=== PATIENT | female | born 1970 | race Caucasian/White ===

== ENCOUNTER 2016-10-19 08:43 | Emergency (ER) | payer OTHER ==
[2016-10-19] VITALS (8 sets, daily range): BP systolic 133–195; BP diastolic 61–96; PULSE 65–89; RESP 18; TEMP 98.1–98.2; O2SAT 96–99
[~2016-10-19 08:43] MED LIST: AMLO2.5T PO; CIPR-9 PO; LEVO25TA36 PO; ZITH250T PO; ZOCO40TA PO; ZOFR8TAB4 SL
[2016-10-19] MEDS ORDERED: niCARdipine INJ 25 MG in SODIUM CHLOR 0.9% 250 ML INJ 250 ML IV SCH (09:15)
[2016-10-19] MEDS ORDERED: SODIUM CHLORIDE 0.9% FLUSH 10 ML FLUSH IVF PRN (09:15)
[2016-10-19 09:22] LABS: AUTOMATED NEUTROPHIL # 6.4 TH/MM3 (1.8-7.7); BASOPHIL # 0.1 TH/MM3 (0-0.2); BASOPHIL % 0.9 % (0.0-2.0); EOSINOPHIL % 9.3 % (0.0-4.0); HEMATOCRIT 44.7 % (35.0-46.0); HEMO FLAGS DIFF FINAL; LYMPH % 24.1 % (9.0-44.0); LYMPHOCYTE # 2.6 TH/MM3 (1.0-4.8); MEAN CELL VOLUME 90.1 FL (80.0-100.0); MEAN CORPUSCULAR HEMOGLOBIN 31.7 PG (27.0-34.0); MEAN CORPUSCULAR HGB CONC 35.2 % (32.0-36.0); MONO % 6.5 % (0.0-8.0); NEUT % 59.2 % (16.0-70.0); PLATELET COUNT 266 TH/MM3 (150-450); RED BLOOD COUNT 4.96 MIL/MM3 (4.00-5.30); RED CELL DISTRIBUTION WIDTH 13.2 % (11.6-17.2); WHITE BLOOD COUNT 10.8 TH/MM3 (4.0-11.0)
--- NOTE | 2016-10-19 09:32 | RADRPT ---
EXAM DATE/TIME: 10/19/2016 09:19 [facility] COMPARISON: No previous studies available for comparison. INDICATIONS : Right upper extremity weakness for one week. RADIATION DOSE: 36.62 CTDIvol (mGy) MEDICAL HISTORY : None SURGICAL HISTORY : None. ENCOUNTER: Initial ACUITY: 1 week PAIN SCALE: 0/10 LOCATION: cranial TECHNIQUE: Multiple contiguous axial images were obtained of the head. Using automated exposure control and adj ustment of the mA and/or kV according to patient size, radiation dose was kept as low as reasonably a chievable to obtain optimal diagnostic quality images. FINDINGS: CEREBRUM: The ventricles are normal for age. No evidence of midline shift, mass lesion, hemorrhage or acute in farction. No extra-axial fluid collections are seen. POSTERIOR FOSSA: The cerebellum and brainstem are intact. The 4th ventricle is midline. The cerebellopontine angle i s unremarkable. EXTRACRANIAL: The visualized portion of the orbits is intact. SKULL: The calvaria is intact. No evidence of skull fracture. CONCLUSION: Normal examination. Merrick Montenegro MD on October 19, 2016 at 9:30 Board Certified Radiologist. This report was verified electronically.
[2016-10-19 09:47] LABS: BICARBONATE 24.6 MEQ/L (21.0-32.0)
[2016-10-19 10:13] LABS: AMPHETAMINE, URINE NEG (NEG); BARBITURATES, URINE NEG (NEG); COCAINE, URINE NEG (NEG)
--- NOTE | 2016-10-19 11:11 | PD ---
HPI Chief Complaint: Hypertension Time Seen by Provider: 09:09 Travel History International Travel<30 days: No Contact w/Intl Traveler<30days: No History of Present Illness HPI 46-year-old female arrives to the ER with paresthesias 1 week in the right upper and lower extremities. She also has weakness in the right upper and lower extremities. She is not sure when the weakness started. She has no headache. She has never experienced weakness in the extremities before. She has not the typically during periods of hypertension she develops nausea and sense of generalized weakness and dizziness. She notes that her blood pressure is high today. She did her prior to coming to the ER was 175/75. She is compliant with amlodipine 2.5 mg nightly. He has no other complaint. PFSH Past Medical History Arthritis: Yes Anxiety: Yes Depression: Yes Cancer: No Cardiovascular Problems: No High Cholesterol: Yes COPD: Yes Dementia: Yes Diabetes: No Diminished Hearing: No Glaucoma: No Genitourinary: Yes (BLADDER SPASMS) Hepatitis: No Hiatal Hernia: No Hypertension: No Musculoskeletal: Yes (FIBROMYALGIA) Psychiatric: Yes (panic attacks) Reproductive: Yes (HERPES) Respiratory: No Thyroid Disease: Yes PNEUMOCCOCAL Vaccine (Year): 2 ?: Not : 4 Para: 1 Miscarriage: 3 Past Surgical History Abdominal Surgery: Yes (appendectomy) Appendectomy: Yes Section: Yes Gynecologic Surgery: Yes () Pacemaker: No Other Surgery: Yes Social History Alcohol Use: No Tobacco Use: No (QUIT 2 YEARS AGO) Substance Use: No Allergies-Medications (Allergen,Severity, Reaction): Coded Allergies: Codeine (Verified Allergy, Intermediate, 01/10/16) Reported Meds & Prescriptions Reported Meds & Active Scripts Active Zofran Odt (Ondansetron Odt) 8 Mg Tab 8 Mg SL Q8H PRN Cipro (Ciprofloxacin HCl) 500 Mg Tab 500 Mg PO BID Zithromax Z-Bautista (Azithromycin) 250 Mg Tab 250 Mg PO DIRECTED 500 MG (2 TABLETS) PO ON DAY 1, THEN 250 MG (1 TABLET) PO ON DAYS 2 TO 5. Reported Amlodipine Besylate 2.5 mg (Amlodipine Besylate) 2.5 Mg Tab 1 Tab PO DAILY 30 Days Levoxyl (Levothyroxine Sodium) 25 Mcg Tab 50 Mcg PO DAILY Zocor 40 mg (Simvastatin) 40 Mg Tab 40 Mg PO HS Review of Systems Except as stated in HPI: all other systems reviewed are Neg General / Constitutional: No: Fever Neurologic: Positive: Weakness, Paresthesia, No: Ataxia, Headache, Slurred Speech Psychiatric: Positive: Anxiety Physical Exam Narrative GENERAL: 46-year-old female pleasant well-nourished well-developed SKIN: Focused skin assessment warm/dry. HEAD: Atraumatic. Normocephalic. EYES: Pupils equal and round. No scleral icterus. No injection or drainage. ENT: No nasal bleeding or discharge. Mucous membranes pink and moist. NECK: Trachea midline. No JVD. CARDIOVASCULAR: Regular rate and rhythm. No murmur appreciated. RESPIRATORY: No accessory muscle use. Clear to auscultation. Breath sounds equal bilaterally. GASTROINTESTINAL: Abdomen soft, non-tender, nondistended. Hepatic and splenic margins not palpable. MUSCULOSKELETAL: No obvious deformities. No clubbing. No cyanosis. No edema. NEUROLOGICAL: Cranial nerves III through XII are intact. The right upper and lower extremity exam reveals mild weakness compared to the left side. 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 Ankle plantar flexion is slightly weaker on the right side. Speech memory mentation normal. PSYCHIATRIC: Appropriate mood and affect; insight and judgment normal. Data Data Last Documented VS Vital Signs Date Time Temp Pulse Resp B/P Pulse Ox O2 Delivery O2 Flow Rate FiO2 10/19/16 13:11 98.2 77 18 166/90 98 10/19/16 12:44 Room Air VS received Orders Electrocardiogram (10/19/16 09:09) Complete Blood Count With Diff (10/19/16 09:09) Basic Metabolic Panel (Bmp) (10/19/16 09:09) Drug Screen, Random Urine (10/19/16 09:09) Ct Brain W/O Iv Contrast(Rout) (10/19/16 09:09) Ecg Monitoring (10/19/16 09:09) Iv Access Insert/Monitor (10/19/16 09:09) Oximetry (10/19/16 09:09) Blood Glucose (10/19/16 09:09) Sodium Chloride 0.9% Flush (Ns Flush) (10/19/16 09:15) Nicardipine Inj (Cardene Inj) (10/19/16 09:15) Mri Brain W/O Contrast (10/19/16 10:27) Mra Brain W/O Contrast (Cow) (10/19/16 10:27) Mra Carotids W Contrast (10/19/16 10:27) Lorazepam Inj (Ativan Inj) (10/19/16 12:00) Lorazepam Inj (Ativan Inj) (10/19/16 11:46) Gadodiamide Pf Inj (Omniscan Pf Inj) (10/19/16 12:19) Labs Laboratory Tests Test 10/19/16 10/19/16 09:10 10:00 White Blood Count 10.8 TH/MM3 Red Blood Count 4.96 MIL/MM3 Hemoglobin 15.7 GM/DL Hematocrit 44.7 % Mean Corpuscular Volume 90.1 FL Mean Corpuscular Hemoglobin 31.7 PG Mean Corpuscular Hemoglobin 35.2 % Concent Red Cell Distribution Width 13.2 % Platelet Count 266 TH/MM3 Mean Platelet Volume 8.0 FL Neutrophils (%) (Auto) 59.2 % Lymphocytes (%) (Auto) 24.1 % Monocytes (%) (Auto) 6.5 % Eosinophils (%) (Auto) 9.3 % Basophils (%) (Auto) 0.9 % Neutrophils # (Auto) 6.4 TH/MM3 Lymphocytes # (Auto) 2.6 TH/MM3 Monocytes # (Auto) 0.7 TH/MM3 Eosinophils # (Auto) 1.0 TH/MM3 Basophils # (Auto) 0.1 TH/MM3 CBC Comment DIFF FINAL Differential Comment Sodium Level 137 MEQ/L Potassium Level 4.0 MEQ/L Chloride Level 103 MEQ/L Carbon Dioxide Level 24.6 MEQ/L Anion Gap 9 MEQ/L Blood Urea Nitrogen 13 MG/DL Creatinine 0.72 MG/DL Estimat Glomerular Filtration 86 ML/MIN Rate Random Glucose 123 MG/DL Calcium Level 9.3 MG/DL Urine Opiates Screen NEG Urine Barbiturates Screen NEG Urine Amphetamines Screen NEG Urine Benzodiazepines Screen NEG Urine Cocaine Screen NEG Urine Cannabinoids Screen NEG MDM Medical Decision Making Medical Screen Exam Complete: Yes Emergency Medical Condition: Yes Differential Diagnosis Stroke, TIA, hypertensive encephalopathy, arrhythmia, anemia, anxiety, cause paralysis, seizure, brain tumor Narrative Course CBC & BMP Diagram 10/19/16 09:10 Drug screen is negative The EKG reveals a sinus rhythm normal axis and intervals no ischemic injury change Last 24 hours Impressions Neck Magnetic Resonance Angiography 10/19/16 1027 Signed Impressions: Service Date/Time: Wednesday, October 19, 2016 11:39 - CONCLUSION: Normal examination. Merrick Montenegro MD Head Magnetic Resonance Angiography 10/19/16 1027 Signed Impressions: Service Date/Time: Wednesday, October 19, 2016 11:39 - CONCLUSION: Normal examination. Merrick Montenegro MD Brain MRI 10/19/16 1027 Signed Impressions: Service Date/Time: Wednesday, October 19, 2016 11:39 - CONCLUSION: Normal examination. Merrick Montenegro MD Head CT 10/19/16 0909 Signed Impressions: Service Date/Time: Wednesday, October 19, 2016 09:19 - CONCLUSION: Normal examination. Merrick Montenegro MD There is quite mild weakness in the right upper and lower extremities. Her workup thus far is unremarkable. The case was discussed with Dr. Ruff and he 'll see the patient tomorrow. We offered the patient admission for further diagnostic evaluation however she was adamantly opposed to this idea. She does agree to see Dr. Ruff tomorrow. Diagnosis Primary Impression: RUE weakness Additional Impression: Weakness of right lower extremity Referrals: Mt Ruff DO 1 day Additional Instructions: You have a choice when it comes to health care, and we are glad that you chose [facility]. Hopefully, we have met your expectations on today's visit. You are welcome to return to [facility] at any time, as we are committed to meeting the health care needs of our community. Med/Other Pt SpecificInfo: No Change to Meds Disposition: 01 DISCHARGE HOME Condition: Stable Haroldo Pan MD Oct 19, 2016 11:10
[2016-10-19] MEDS ORDERED: LORazepam 2 MG/ML VIAL ONE (11:46)
[2016-10-19] MEDS ORDERED: LORazepam 2 MG/ML VIAL IV PUSH ONE (12:00)
[2016-10-19] MEDS ORDERED: GADODIAMIDE PF 287 MG/ML 20 ML VIAL (for RAD MRI) IV ONE (12:19)
--- NOTE | 2016-10-19 12:26 | RADRPT ---
EXAM DATE/TIME: 10/19/2016 11:39 [facility] COMPARISON: CT BRAIN W/O CONTRAST, October 19, 2016, 9:19. INDICATIONS : Right sided tingling. MEDICAL HISTORY : Hypertension. SURGICAL HISTORY : Appendectomy. section. ENCOUNTER: Initial ACUITY: 1 day PAIN SCORE: 0/10 LOCATION: head TECHNIQUE: Multiplanar, multisequence MRI of the brain was performed without contrast. FINDINGS: There is no evidence for acute infarction on diffusion weighted images. No hemorrhage is seen. No mas ses are identified. Signal intensity of the brain is normal. CONCLUSION: Normal examination. Merrick Montenegro MD on October 19, 2016 at 12:24 Board Certified Radiologist. This report was verified electronically.
--- NOTE | 2016-10-19 12:27 | RADRPT ---
EXAM DATE/TIME: 10/19/2016 11:39 [facility] COMPARISON: MRI BRAIN W/O CONTRAST, October 19, 2016, 11:39. CT BRAIN W/O CONTRAST, October 19, 2016, 9:19. INDICATIONS : Right sided tingling. MEDICAL HISTORY : Hypertension. SURGICAL HISTORY : Appendectomy. section. ENCOUNTER: Initial ACUITY: 1 day PAIN SCORE: 0/10 LOCATION: head Please note a normal MRA of the brain does not entirely exclude the possibility of a small aneurysm, nor the possibility of distal intracranial vessel disease. TECHNIQUE: 3D time of flight MRA was performed. Source images, multiplanar STS MIP, and 3D volume MIP reconstru ctions were reviewed. FINDINGS: There is excellent visualization of the major intracranial arteries out to the second-order branch ve ssels. There is no evidence for aneurysm, vessel truncation or stenosis, and no evidence for vascula r malformation. A one division of the right anterior cerebral artery is hypoplastic compared to the l eft. CONCLUSION: Normal examination. Merrick Montenegro MD on October 19, 2016 at 12:25 Board Certified Radiologist. This report was verified electronically.
--- NOTE | 2016-10-19 12:51 | RADRPT ---
EXAM DATE/TIME: 10/19/2016 11:39 [facility] COMPARISON: MRI BRAIN W/O CONTRAST, October 19, 2016, 11:39. MRA BRAIN W/O CONTRAST, October 19, 2016, 11:39. INDICATIONS : Right sided tingling. CONTRAST: 20 cc Omniscan (gadodiamide) IV MEDICAL HISTORY : Hypertension. SURGICAL HISTORY : Appendectomy. section. ENCOUNTER: Initial ACUITY: 1 day PAIN SCORE: 0/10 LOCATION: neck Percent stenosis is calculated using the diameter of the stenotic region over the diameter of the nor mal distal internal carotid artery. TECHNIQUE: Bolus infused MRA of the extracranial circulation was performed using a neurovascular coil. Post pro cessing was performed including rotating subvolume maximum intensity projections of each carotid austen ry, rotating full volume maximum intensity projections of both carotid arteries, sagittal and coronal sliding thin slab reformations of each carotid artery, and left oblique sliding thin slab reformatio n through the aortic arch to include the origin of the arch branch vessels. FINDINGS: AORTIC ARCH: There is a three vessel origin of the great vessels from the aorta. No evidence of ostial narrowing. RIGHT CAROTID: The common carotid artery is intact. The carotid bulb has a normal configuration without ulceration or narrowing. The internal carotid artery lumen is smooth without stenosis. The external carotid ar kennedi is intact. LEFT CAROTID: The common carotid artery is intact. The carotid bulb has a normal configuration without ulceration or narrowing. The internal carotid artery lumen is smooth without stenosis. The external carotid ar kennedi is intact. VERTEBRALS: The vertebral arteries have a symmetric diameter. No stenotic lesions are seen. CONCLUSION: Normal examination. Merrick Montenegro MD on October 19, 2016 at 12:49 Board Certified Radiologist. This report was verified electronically.
--- NOTE | 2016-10-20 11:54 | EKG ---
Date Performed: 10/19/2016 Time Performed: 09:43:34 PTAGE: 46 years EKG: Sinus rhythm NORMAL ECG NO PREVIOUS TRACING DOCTOR: Himanshu Bennett Interpretating Date/Time 10/20/2016 11:47:14
== END 2016-10-19 13:46 | disposition home or self-care (01) ==
LOC: NEPE 08:43
DX: R53.1 Weakness (principal); E78.00 Pure hypercholesterolemia, unspecified; J44.9 Chronic obstructive pulmonary disease, unspecified; M79.7 Fibromyalgia; E07.9 Disorder of thyroid, unspecified; Z87.891 Personal history of nicotine dependence
CPT/HCPCS: 70450; 70544; 70548; 70551; 80048; 80307; 85025; 93005; 96374; 96375; 99285; A9579; J2060; J7050

== ENCOUNTER → 2016-10-22 | Outpatient (CLI) | payer OTHER ==
[2016-10-22 08:26] LABS: AUTOMATED NEUTROPHIL # 7.2 TH/MM3 (1.8-7.7); BASOPHIL # 0.1 TH/MM3 (0-0.2); BASOPHIL % 0.9 % (0.0-2.0); EOSINOPHIL # 0.9 TH/MM3 (0-0.4); EOSINOPHIL % 8.1 % (0.0-4.0); HEMATOCRIT 43.1 % (35.0-46.0); HEMO FLAGS DIFF FINAL; LYMPH % 19.7 % (9.0-44.0); LYMPHOCYTE # 2.2 TH/MM3 (1.0-4.8); MEAN CELL VOLUME 90.6 FL (80.0-100.0); MEAN CORPUSCULAR HEMOGLOBIN 31.6 PG (27.0-34.0); MEAN CORPUSCULAR HGB CONC 34.9 % (32.0-36.0); MONO % 7.4 % (0.0-8.0); NEUT % 63.9 % (16.0-70.0); PLATELET COUNT 272 TH/MM3 (150-450); RED BLOOD COUNT 4.76 MIL/MM3 (4.00-5.30); RED CELL DISTRIBUTION WIDTH 13.3 % (11.6-17.2); WHITE BLOOD COUNT 11.2 TH/MM3 (4.0-11.0)
[2016-10-22 08:50] LABS: WESTERGREN SEDIMENTATION RATE 5 mm/hr (0-20)
[2016-10-22 09:05] LABS: ALKALINE PHOSPHATASE 78 U/L (45-117); ALT (GPT) 24 U/L (10-53); ANION GAP 8 MEQ/L (5-15); AST (GOT) 14 U/L (15-37); BICARBONATE 27.3 MEQ/L (21.0-32.0); BLOOD UREA NITROGEN 10 MG/DL (7-18); CHLORIDE 103 MEQ/L (98-107); FREE T3 2.69 PG/ML (2.18-3.98); FREE T4 1.13 NG/DL (0.76-1.46); GLOMERULAR FILTRATION RATE 101 ML/MIN (>89); GLUCOSE,FASTING 89 MG/DL (74-99); HDL CHOLESTEROL 58.5 MG/DL (40.0-60.0); LDL CHOLESTEROL 106 MG/DL (0-99); POTASSIUM 3.8 MEQ/L (3.5-5.1); SODIUM (NA) 138 MEQ/L (136-145); TOTAL BILIRUBIN ADULT 0.4 MG/DL (0.2-1.0)
[2016-10-22 16:35] LABS: HEMOGLOBIN A1b 0.7 %; HEMOGLOBIN Ao 86.4 %; HEMOGLOBIN F 0.8 %; HEMOGLOBIN P3 3.4 %
[2016-10-26 11:53] LABS: PROGESTERONE LESS THAN 0.1 ng/mL (())
[2016-10-26 11:55] LABS: ESTRADIOL <10 pg/mL (())
== END ==
LOC: CLAB 07:51
PROVIDERS: ATTEND Family Medicine
DX: I10 Essential (primary) hypertension (principal); E78.2 Mixed hyperlipidemia; E03.8 Other specified hypothyroidism; R53.83 Other fatigue; E55.9 Vitamin D deficiency, unspecified; R84.7 Abnormal histological findings in specimens from respiratory organs and thorax; Z79.899 Other long term (current) drug therapy
CPT/HCPCS: 36415; 80053; 80061; 82306; 82670; 82679; 83036; 84144; 84403; 84439; 84443; 84481; 85025; 85652

== ENCOUNTER → 2017-06-11 | Outpatient (CLI) | payer OTHER ==
[~2017-06-11] MED LIST changes: -CIPR-9 PO; +IBUP200C PO; -LEVO25TA36 PO; +LEVO50TA53 PO; -ZITH250T PO; +ZITHTAB PO; -ZOCO40TA PO
[2017-06-11 09:03] LABS: AUTOMATED NEUTROPHIL # 4.9 TH/MM3 (1.8-7.7); BASOPHIL # 0.1 TH/MM3 (0-0.2); BASOPHIL % 1.2 % (0.0-2.0); EOSINOPHIL # 1.1 TH/MM3 (0-0.4); EOSINOPHIL % 11.9 % (0.0-4.0); HEMATOCRIT 43.6 % (35.0-46.0); HEMO FLAGS DIFF FINAL; LYMPH % 26.9 % (9.0-44.0); LYMPHOCYTE # 2.6 TH/MM3 (1.0-4.8); MEAN CELL VOLUME 92.4 FL (80.0-100.0); MEAN CORPUSCULAR HEMOGLOBIN 32.1 PG (27.0-34.0); MEAN CORPUSCULAR HGB CONC 34.8 % (32.0-36.0); MONO % 8.9 % (0.0-8.0); NEUT % 51.1 % (16.0-70.0); PLATELET COUNT 268 TH/MM3 (150-450); RED BLOOD COUNT 4.72 MIL/MM3 (4.00-5.30); RED CELL DISTRIBUTION WIDTH 13.1 % (11.6-17.2); WHITE BLOOD COUNT 9.6 TH/MM3 (4.0-11.0)
[2017-06-11 09:17] LABS: ALT (GPT) 19 U/L (10-53); ANION GAP 8 MEQ/L (5-15); AST (GOT) 15 U/L (15-37); BLOOD UREA NITROGEN 12 MG/DL (7-18); CHLORIDE 102 MEQ/L (98-107); GLUCOSE,FASTING 97 MG/DL (74-99); POTASSIUM 3.9 MEQ/L (3.5-5.1); SODIUM (NA) 135 MEQ/L (136-145)
[2017-06-11 09:19] LABS: GLOMERULAR FILTRATION RATE 95 ML/MIN (>89); THYROXINE (T4) 9.9 MCG/DL (4.8-13.9); TOTAL BILIRUBIN ADULT 0.4 MG/DL (0.2-1.0)
[2017-06-11 09:27] LABS: ALKALINE PHOSPHATASE 86 U/L (45-117); FREE T3 2.85 PG/ML (2.18-3.98); LDL CHOLESTEROL 209 MG/DL (0-99)
== END ==
LOC: ELAB 07:46
PROVIDERS: ATTEND Family Medicine
DX: I10 Essential (primary) hypertension (principal); E78.2 Mixed hyperlipidemia; E03.8 Other specified hypothyroidism; Z79.899 Other long term (current) drug therapy
CPT/HCPCS: 36415; 80053; 80061; 84436; 84443; 84481; 85025

== ENCOUNTER → 2017-09-03 | Outpatient (CLI) | payer OTHER ==
[2017-09-06 13:49] LABS: ESTRADIOL <10 pg/mL; ESTRONE 25 pg/mL; TESTOSTERONE,TOTAL 18 ng/dL (8-60)
[2017-09-06 17:51] LABS: PROGESTERONE LESS THAN 0.1 ng/mL
== END ==
LOC: ELAB 07:55
PROVIDERS: ATTEND Family Medicine
DX: Z00.00 Encounter for general adult medical examination without abnormal findings (principal); R61 Generalized hyperhidrosis
CPT/HCPCS: 36415; 82671; 84144; 84403

== ENCOUNTER → 2017-10-22 | Outpatient (CLI) | payer OTHER ==
[~2017-10-22] MED LIST changes: +SIMV40TA PO; +TYLE325T PO; +ZOFR4TAB3 SL
[2017-10-22 09:04] LABS: AUTOMATED NEUTROPHIL # 4.3 TH/MM3 (1.8-7.7); BASOPHIL # 0.1 TH/MM3 (0-0.2); BASOPHIL % 1.1 % (0.0-2.0); EOSINOPHIL # 0.5 TH/MM3 (0-0.4); EOSINOPHIL % 6.5 % (0.0-4.0); HEMATOCRIT 45.4 % (35.0-46.0); HEMOGLOBIN 15.5 GM/DL (11.6-15.3); LYMPH % 29.7 % (9.0-44.0); LYMPHOCYTE # 2.3 TH/MM3 (1.0-4.8); MEAN CORPUSCULAR HEMOGLOBIN 31.3 PG (27.0-34.0); MEAN PLATELET VOLUME 7.9 FL (7.0-11.0); MONO % 8.3 % (0.0-8.0); MONOCYTE # 0.7 TH/MM3 (0-0.9); NEUT % 54.4 % (16.0-70.0); PLATELET COUNT 308 TH/MM3 (150-450); RED BLOOD COUNT 4.94 MIL/MM3 (4.00-5.30); RED CELL DISTRIBUTION WIDTH 13.2 % (11.6-17.2); WHITE BLOOD COUNT 7.9 TH/MM3 (4.0-11.0)
[2017-10-22 09:33] LABS: ALBUMIN 4.3 GM/DL (3.4-5.0); AST (GOT) 13 U/L (15-37); BLOOD UREA NITROGEN 10 MG/DL (7-18); CALCIUM 9.2 MG/DL (8.5-10.1); CHLORIDE 105 MEQ/L (98-107); CREATININE 0.74 MG/DL (0.50-1.00); GLOMERULAR FILTRATION RATE 83 ML/MIN (>89); GLUCOSE,FASTING 85 MG/DL (74-99); SODIUM (NA) 139 MEQ/L (136-145)
[2017-10-22 09:34] LABS: ALT (GPT) 21 U/L (10-53); CHOLESTEROL 176 MG/DL (120-200); TRIGLYCERIDES 62 MG/DL (42-150)
[2017-10-22 09:42] LABS: ALKALINE PHOSPHATASE 88 U/L (45-117); CHOLESTEROL/ HDL RATIO 2.72 RATIO; HDL CHOLESTEROL 64.6 MG/DL (40.0-60.0); LDL CHOLESTEROL 99 MG/DL (0-99); TOTAL BILIRUBIN ADULT 0.5 MG/DL (0.2-1.0); TOTAL PROTEIN 7.9 GM/DL (6.4-8.2)
[2017-10-22 16:11] LABS: HEMOGLOBIN A1C 5.1 % (4.3-6.0)
== END ==
LOC: CLAB 08:08
PROVIDERS: ATTEND Family Medicine
DX: R53.83 Other fatigue (principal); I10 Essential (primary) hypertension; E10.8 Type 1 diabetes mellitus with unspecified complications; E78.2 Mixed hyperlipidemia; E03.8 Other specified hypothyroidism; R61 Generalized hyperhidrosis; Z79.899 Other long term (current) drug therapy
CPT/HCPCS: 36415; 80053; 80061; 83036; 84439; 84443; 84480; 84482; 85025

== ENCOUNTER 2017-10-24 10:36 | Emergency (ER) | payer OTHER ==
[~2017-10-24] VITALS: Ht 157.5 cm; Wt 60.0 kg
[~2017-10-24 10:36] MED LIST changes: -SIMV40TA PO; -TYLE325T PO; -ZOFR4TAB3 SL
[2017-10-24 10:39] VITALS: BP 135/94; PULSE 97; RESP 16; TEMP 97.9; O2SAT 96
[2017-10-24] MEDS ORDERED: SIMV40TA PO (10:59)
--- NOTE | 2017-10-24 11:13 | PD ---
HPI Chief Complaint: Injury Time Seen by Provider: 11:00 Travel History International Travel<30 days: No Contact w/Intl Traveler<30days: No Traveled to known affect area: No History of Present Illness HPI 47yo F with PMH of HTN, hypothyroidism and HLD presents to the ED with c/o right thigh and right elbow pain s/p trip and fall on a ball 2 days ago. Denies hitting her head or LOC. Denies any fever, cough, chest pain, sob, vomiting, abdominal pain, focal weakness or numbness. Pt has a large area of ecchymoses in right outer thigh and said she has pain with walking. She is going to walk tomorrow and wants a work note. Feels a little nauseous as well. Denies any anticoagulation. PFSH Past Medical History Arthritis: Yes Anxiety: Yes Depression: Yes Cancer: No Cardiovascular Problems: Yes (htn on meds) High Cholesterol: Yes COPD: Yes Dementia: Yes Diabetes: No Diminished Hearing: No Glaucoma: No Genitourinary: Yes (BLADDER SPASMS) Hepatitis: No Hiatal Hernia: No Hypertension: Yes Musculoskeletal: Yes (FIBROMYALGIA) Psychiatric: Yes (panic attacks) Reproductive: Yes (HERPES) Respiratory: No Immunizations Current: Yes Thyroid Disease: Yes Tetanus Vaccination: Unknown Influenza Vaccination: Yes PNEUMOCCOCAL Vaccine (Year): 2 ?: Not LMP: cornelio menapause : 4 Para: 1 Miscarriage: 3 Past Surgical History Abdominal Surgery: Yes (appendectomy) Appendectomy: Yes Section: Yes Gynecologic Surgery: Yes () Pacemaker: No Other Surgery: Yes Social History Alcohol Use: No Tobacco Use: Yes (2 CIGS) Substance Use: No Allergies-Medications (Allergen,Severity, Reaction): Coded Allergies: codeine (Unverified Allergy, Intermediate, 10/24/17) Reported Meds & Prescriptions Reported Meds & Active Scripts Active Tylenol (Acetaminophen) 325 Mg Tab 650 Mg PO Q6H PRN Zofran Odt (Ondansetron Odt) 4 Mg Tab 4 Mg SL Q12HR PRN Reported Simvastatin 40 Mg Tab 40 Mg PO HS Levoxyl (Levothyroxine Sodium) 50 Mcg Tab 50 Mcg PO DAILY Amlodipine (Amlodipine Besylate) 2.5 Mg Tab 2.5 Mg PO BID Review of Systems Except as stated in HPI: all other systems reviewed are Neg Physical Exam Narrative GENERAL: 47yo F not in distress. SKIN: Focused skin assessment warm/dry. HEAD: Atraumatic. Normocephalic. EYES: Pupils equal and round. No scleral icterus. No injection or drainage. ENT: No nasal bleeding or discharge. Mucous membranes pink and moist. NECK: Trachea midline. No JVD. CARDIOVASCULAR: Regular rate and rhythm. No murmur appreciated. RESPIRATORY: No accessory muscle use. Clear to auscultation. Breath sounds equal bilaterally. GASTROINTESTINAL: Abdomen soft, non-tender, nondistended. BACK: No midline ttp thoracic or lumbar spine. MUSCULOSKELETAL: Right elbow: +ecchymoses with ttp. Good range of motion. Sensation intact. Distal pulses intact. RLE: +Large ecchymose 15cm by 15cm in right outer thigh. No erythema or fluctuance. +TTP over ecchymoses. Sensation intact. Distal pulses intact. NEUROLOGICAL: Awake and alert. No obvious cranial nerve deficits. Motor grossly within normal limits. Normal speech. PSYCHIATRIC: Appropriate mood and affect; insight and judgment normal. Data Data Last Documented VS Vital Signs Date Time Temp Pulse Resp B/P (MAP) Pulse Ox O2 Delivery O2 Flow Rate FiO2 10/24/17 12:00 76 16 108/76 (87) 99 Room Air 10/24/17 10:39 97.9 Orders Orders Femur (Ap & Lat/2vws) (10/24/17 ) Elbow, Limited (Ap&Lat) (10/24/17 ) Ondansetron Odt (Zofran Odt) (10/24/17 11:15) Ketorolac Inj (Toradol Inj) (10/24/17 11:15) Ed Discharge Order (10/24/17 12:13) [facility] Medical Decision Making Medical Screen Exam Complete: Yes Emergency Medical Condition: Yes Differential Diagnosis Hematoma vs. underlying fracture vs. contusion Narrative Course 47yo F here with c/o right elbow and right thigh pain after mechanical fall 2 days ago. Pt has large ecchymoses in right thigh and that is where the pain is. No open wounds or signs of infection. Pt is well appearing and able to ambulate but with pain. Pt is worry about having to work tomorrow and requests work note. Xray of right elbow showed no fracture or dislocation. Xray right femur negative for fracture or dislocation. Pt given toradol and zofran and said her pain has improved and she is no longer nauseous. Tolerating PO and requesting a few nausea medication as prescription as well as pain medication. Return precautions given. Diagnosis Primary Impression: Fall Qualified Codes: W19.XXXA - Unspecified fall, initial encounter Patient Instructions: General Instructions Departure Forms: Tests/Procedures, Work Release Enter return to work date: Oct 27, 2017 Additional Instructions: Please follow up with your primary care physician in 3-7 days. Return to the ED if symptoms worsen. Med/Other Pt SpecificInfo: Prescription(s) given Scripts Acetaminophen (Tylenol) 325 Mg Tab 650 MG PO Q6H Y for PAIN SCALE 1 TO 4, #20 TAB 0 Refills Prov: Ashlee Baxter DO 10/24/17 Ondansetron Odt (Zofran Odt) 4 Mg Tab 4 MG SL Q12HR Y for Nausea/Vomiting, #6 TAB 0 Refills Prov: Ashlee Baxter DO 10/24/17 Disposition: 01 DISCHARGE HOME Condition: Stable Ashlee Baxter DO Oct 24, 2017 11:13
[2017-10-24] MEDS ORDERED: ONDANSETRON ODT 4 MG TAB PO ONE (11:15)
[2017-10-24] MEDS ORDERED: KETOROLAC TROMETHAMINE 60 MG/2 ML (IM) VIAL IM ONE (11:15)
--- NOTE | 2017-10-24 11:51 | RADRPT ---
EXAM DATE/TIME: 10/24/2017 11:22 [facility] COMPARISON: No previous studies available for comparison. INDICATIONS : Fell, right elbow pain MEDICAL HISTORY : None. SURGICAL HISTORY : None. ENCOUNTER: Initial ACUITY: 3 days PAIN SCORE: 4/10 LOCATION: Right elbow FINDINGS: Two view examination of the right elbow demonstrates no soft tissue swelling, joint effusion, fractur e or dislocation. Bony mineralization is normal. CONCLUSION: Negative for fracture or dislocation. Follow up in 7-10 days is suggested if symptoms persist. Apolinar Schmidt MD FACR on October 24, 2017 at 11:49 Board Certified Radiologist. This report was verified electronically.
--- NOTE | 2017-10-24 11:52 | RADRPT ---
EXAM DATE/TIME: 10/24/2017 11:22 [facility] COMPARISON: No previous studies available for comparison. INDICATIONS : Fell on right side, has bruising , swelling , and pain right hip area MEDICAL HISTORY : None. SURGICAL HISTORY : None. ENCOUNTER: Initial ACUITY: 3 days PAIN SCORE: 10/10 LOCATION: Right femur FINDINGS: Two view examination of the right femur demonstrates no evidence of fracture or dislocation. Bony mi neralization is normal. The soft tissue structures are intact. CONCLUSION: Negative for fracture or dislocation. Follow up in 7-10 days is suggested if symptoms persist. Apolinar Schmidt MD FACR on October 24, 2017 at 11:50 Board Certified Radiologist. This report was verified electronically.
[2017-10-24 12:00] VITALS: BP 108/76; PULSE 76; RESP 16; O2SAT 99
[2017-10-24] MEDS ORDERED: TYLE325T PO (12:12)
[2017-10-24] MEDS ORDERED: ZOFR4TAB3 SL (12:12)
== END 2017-10-24 12:26 | disposition home or self-care (01) ==
LOC: PHED 10:36
DX: M79.651 Pain in right thigh (principal); M25.521 Pain in right elbow; R11.0 Nausea; I10 Essential (primary) hypertension; E03.9 Hypothyroidism, unspecified; E78.5 Hyperlipidemia, unspecified; J44.9 Chronic obstructive pulmonary disease, unspecified; F03.90 Unspecified dementia, unspecified severity, without behavioral disturbance, psychotic disturbance, mood disturbance, and anxiety; M79.7 Fibromyalgia
CPT/HCPCS: 73070; 73552; 96372; 99283; J1885